=== PATIENT | female | born 1955 | race Caucasian/White ===

== ENCOUNTER 2021-07-19 14:18 | Emergency (ER) | payer OTHER, SELFPAY ==
[2021-07-19] VITALS (7 sets, daily range): BP systolic 175–218; BP diastolic 84–106; PULSE 63–80; RESP 16–18; TEMP 36.6–36.8; O2SAT 96–99; BMI 32.8
[2021-07-19 14:57] LABS: Apearance,Urine Clear (Clear); Color,Urine Yellow (Yellow); PH,Urine 6.5 (5.0-8.5); Protein,Urine Negative (Negative)
[2021-07-19 14:58] LABS: Bilirubin,Urine Negative (Negative); Blood, Urine Negative (Negative); Glucose,Urine (UA) Negative (Negative); Ketones,Urine Negative (Negative); UTC Leukocyte Esterase,Urine Trace (Negative); UTC Nitrate,Urine Negative (Negative); Urobilinogen,Urine 0.2 EU/dl (0.2)
--- NOTE | 2021-07-19 15:32 | HMH.EDUTC ---
[facility] [place] Clinical Impression: Uncontrolled hypertension, Shakiness Disposition: Home, Self-Care Condition on Discharge: Good Instructions: DI for High Blood Pressure Additional Instructions: Take your dose of lisinopril 20 mg tonight. You may begin taking lisinopril 40 mg call in 1 dose tomorrow. You may stop taking the antibiotic. Call your primary care doctor tomorrow for follow-up. Return to the emergency department if symptoms worsen. Referrals: Provider,Referral, [Primary Care Provider] - Medical Decision Making - Jose Juan Inquiry Pt receiving controlled substance: No Jose Juan was queried for this patient: No Vital Signs: 07/19/21 14:34 07/19/21 14:52 07/19/21 16:46 Temperature 98.2 F Temperature Source Oral Pulse Rate 80 Pulse Rate [Right Radial] 63 63 Respiratory Rate 18 16 16 Blood Pressure 206/84 H Blood Pressure [Right Arm] 190/100 H 190/100 H Blood Pressure Mean [Right Arm] 130 130 Blood Pressure Source Automatic Cuff Blood Pressure Source [Right Arm] Automatic Cuff Automatic Cuff Blood Pressure Position Sitting Blood Pressure Position [Right Arm] Sitting Sitting 02 Sat by Pulse Oximetry 99 99 98 Oxygen Delivery Method Room Air Room Air Room Air 07/19/21 17:00 07/19/21 17:23 07/19/21 17:30 Temperature 98.2 F Temperature Source Oral Pulse Rate 69 75 66 Pulse Rate [Right Radial] 64 Respiratory Rate 18 Blood Pressure 213/106 H 218/104 H 192/99 H Blood Pressure [Right Arm] 206/105 H Blood Pressure Mean [Right Arm] 138 Blood Pressure Source Blood Pressure Source [Right Arm] Automatic Cuff Blood Pressure Position Blood Pressure Position [Right Arm] Sitting 02 Sat by Pulse Oximetry 98 98 96 Oxygen Delivery Method Room Air 07/19/21 20:15 07/19/21 20:16 Temperature 97.9 F Temperature Source Oral Pulse Rate 76 Pulse Rate [Right Radial] Respiratory Rate 18 Blood Pressure 175/94 H Blood Pressure [Right Arm] Blood Pressure Mean [Right Arm] Blood Pressure Source Automatic Cuff Blood Pressure Source [Right Arm] Blood Pressure Position Sitting Blood Pressure Position [Right Arm] 02 Sat by Pulse Oximetry Oxygen Delivery Method Room Air Room Air - Lab Data Lab Results 07/19/21 14:50: Urine Color Yellow, Urine Appearance Clear, Urine pH 6.5, Ur Specific [place] 1.010, Urine Protein Negative, Urine Glucose (UA) Negative, Urine Ketones Negative, Urine Blood Negative, Urine Nitrate Negative, Urine Bilirubin Negative, Urine Urobilinogen 0.2, Ur Leukocyte Esterase Trace 07/19/21 16:03: WBC 12.4 H, RBC 4.83, Hgb 14.0, Hct 44.2, MCV 91.6, MCH 28.9, MCHC 31.6 L, RDW 14.0, Plt Count 459 H, MPV 8.3, Neut % (Auto) 71.4, Lymph % (Auto) 22.5, Jack % (Auto) 4.1, Eos % (Auto) 1.2, Baso % (Auto) 0.8, Neut # (Auto) 8.9 H, Lymph # (Auto) 2.8, Jack # (Auto) 0.5, Eos # (Auto) 0.1, Baso # (Auto) 0.1 07/19/21 16:03: Sodium 132 L, Potassium 3.7, Chloride 101, Carbon Dioxide 30, Anion Gap 4.7 L, BUN 10, Creatinine 0.70, Estimated Creat Clear 81, Estimated GFR 85, Est GFR ( Amer) 102, Glucose 93, Calcium 8.6, Total Bilirubin 0.6, AST 44 H, ALT 40, Alkaline Phosphatase 98, Troponin I < 0.01, Total Protein 7.9, Albumin 4.6, Globulin 3.3 H, Albumin/Globulin Ratio 1.4 Result diagrams: 07/19/21 16:03 07/19/21 16:03 Orders (Tests/Meds): ED MEDICATIONS Generic Name Dose Route Start Last Admin Trade Name Freq PRN Reason Stop Dose Admin Sodium Chloride 10 ml 07/19/21 16:05 Sodium Chloride 0.9% 10ml Flush Syringe IV 08/18/21 16:04 NEEDED PRN Maintain IV Site Discontinued Medications Generic Name Dose Route Start Last Admin Trade Name Freq PRN Reason Stop Dose Admin Hydralazine HCl 5 mg 07/19/21 17:31 07/19/21 17:52 Hydralazine 20mg/Ml Vial IV 07/19/21 17:32 5 mg ONCE ONE Administration Hydralazine HCl 5 mg 07/19/21 18:51 07/19/21 18:53 Hydralazine 20mg/Ml Vial IV 07/19/21 18:52 5 mg ONCE
--- NOTE | 2021-07-19 15:55 | PC.NURSE ---
Called report to [facility] in ER. Advised no bed available at this time.
--- NOTE | 2021-07-19 16:03 | PC.NURSE ---
Advised pt she would be transferring over to the ED for further evaul but there were no beds available at this time. Pt agreeable with plan. ER workup started in [facility]. IV started, and orders entered.
--- NOTE | 2021-07-19 16:05 | CT_ITS ---
PROCEDURE INFORMATION: Exam: CT Head Without Contrast Exam date and time: 07/19/2021 4:05 PM Age: 65 years old Clinical indication: Dizziness; Additional info: Hypertension; Feels funny TECHNIQUE: Imaging protocol: Computed tomography of the head without contrast. Radiation optimization: All CT scans at this facility use at least one of these dose optimization techniques: automated exposure control; mA and/or kV adjustment per patient size (includes targeted exams where dose is matched to clinical indication); or iterative reconstruction. COMPARISON: No relevant prior studies available. FINDINGS: Brain: Normal. No hemorrhage. Unremarkable white matter. No mass effect. Cerebral ventricles: No ventriculomegaly. Paranasal sinuses: Visualized sinuses are unremarkable. No fluid levels. Mastoid air cells: Visualized mastoid air cells are well aerated. Bones/joints: Unremarkable. No acute fracture. Soft tissues: Unremarkable. IMPRESSION: No acute intracranial abnormality.
[2021-07-19 16:19] LABS: Chloride 101 mmol/L (98-107); Potassium 3.7 mmoL/L (3.5-5.1); Sodium 132 mmol/L (136-145)
[2021-07-19 16:22] LABS: Alanine Aminotransferase 40 U/L (12-78); Albumin Level 4.6 g/dl (3.5-5.0); Albumin/Globulin Ratio 1.4 (1.1-1.8); Alkaline Phosphatase 98 U/L (38-126); Anion Gap 4.7 mEq/L (5-15); Aspartate Amino Transferase 44 U/L (14-36); Bilirubin,Total 0.6 mg/dl (0.2-1.3); Blood Urea Nitrogen 10 mg/dl (7-17); Carbon Dioxide 30 mmol/L (22.0-30.0); Creatinine Clearance Estimated 81 mL/min (50-200); Estimated Glomerular Filt Rate 85 ml/min (>60); GFR (African American) 102 ML/MIN (>60); Globulin 3.3 g/dL (1.3-3.2); Total Protein,Serum 7.9 g/dl (6.3-8.2)
[2021-07-19 16:23] LABS: Calcium 8.6 mg/dl (8.4-10.2); Glucose 93 mg/dl (74-100)
--- NOTE | 2021-07-19 16:30 | ECG_ITS ---
APPROVED REPORT Exam: Resting ECG HR:68 bpm ECG Measurements Heart Rate 68 AXES SD 196 P 44 QRSd 102 QRS -29 QT 386 T 12 QTc 403 Conclusion SINUS RHYTHM BORDERLINE LEFT AXIS DEVIATION [QRS AXIS < -20] MINIMAL VOLTAGE CRITERIA FOR LVH, CONSIDER NORMAL VARIANT [MEETS CRITERIA IN ONE OF: R(aVL), S(V1), R(V5), R(V5/V6)+S(V1)] BORDERLINE ECG UNCONFIRMED REPORT Electronically signed by : Alejandro Whittington MD 07/22/2021 16:08:47
--- NOTE | 2021-07-19 16:33 | PC.NURSE ---
Pt returned from CT
[2021-07-19 16:35] LABS: Basophils # 0.1 K/mm3 (0-0.2); Basophils % 0.8 % (0.1-2.0); Eosinophils # 0.1 K/mm3 (0.0-0.4); Eosinophils % 1.2 % (0.1-12.0); Hematocrit 44.2 % (37.0-47.0); Lymphocytes # 2.8 K/mm3 (0.7-4.5); Lymphocytes % 22.5 % (10-50); Mean Corpuscular HGB Conc 31.6 g/dL (31.8-35.4); Mean Corpuscular Hemoglobin 28.9 pg (27.0-31.2); Mean Corpuscular Volume 91.6 fl (81-99); Mean Platelet Volume 8.3 fl (7.4-10.4); Monocytes # 0.5 K/mm3 (0.1-1.0); Monocytes % 4.1 % (1.7-9.3); Neutrophils # 8.9 K/mm3 (1.8-7.8); Neutrophils % 71.4 % (37.0-80.0); Platelet Count 459 K/mm3 (142-424); Red Blood Count 4.83 M/mm3 (4.20-5.40); White Blood Count 12.4 K/mm3 (4.8-10.8)
[2021-07-19 16:37] LABS: Troponin I < 0.01 ng/ml (0.00-0.034)
--- NOTE | 2021-07-19 16:52 | PC.NURSE ---
PT to ED to room 4
--- NOTE | 2021-07-19 17:06 | HMH.EDGENADL ---
ED Disposition Clinical Impression: Uncontrolled hypertension, Shakiness Disposition: Home, Self-Care Condition on Discharge: Fair Instructions: DI for High Blood Pressure Additional Instructions: Take your dose of lisinopril 20 mg tonight. You may begin taking lisinopril 40 mg call in 1 dose tomorrow. You may stop taking the antibiotic. Call your primary care doctor tomorrow for follow-up. Return to the emergency department if symptoms worsen. Referrals: Provider,Referral, [Primary Care Provider] - - Critical Care Critical Care Time: No Attestation: On 07/19/21, the high probability of a clinically significant, sudden or life threatening deterioration of the following system(s) required my full and direct attention, intervention and personal management. The time I documented below is in addition to time spent performing reported procedures but includes the following listed in this critical care notation. Medical Decision Making - Jose Juan Inquiry Pt receiving controlled substance: No Vital Signs: 07/19/21 14:34 07/19/21 14:52 07/19/21 16:46 Temperature 98.2 F Temperature Source Oral Pulse Rate 80 Pulse Rate [Right Radial] 63 63 Respiratory Rate 18 16 16 Blood Pressure 206/84 H Blood Pressure [Right Arm] 190/100 H 190/100 H Blood Pressure Mean [Right Arm] 130 130 Blood Pressure Source Automatic Cuff Blood Pressure Source [Right Arm] Automatic Cuff Automatic Cuff Blood Pressure Position Sitting Blood Pressure Position [Right Arm] Sitting Sitting 02 Sat by Pulse Oximetry 99 99 98 Oxygen Delivery Method Room Air Room Air Room Air 07/19/21 17:00 07/19/21 17:23 07/19/21 17:30 Temperature 98.2 F Temperature Source Oral Pulse Rate 69 75 66 Pulse Rate [Right Radial] 64 Respiratory Rate 18 Blood Pressure 213/106 H 218/104 H 192/99 H Blood Pressure [Right Arm] 206/105 H Blood Pressure Mean [Right Arm] 138 Blood Pressure Source Blood Pressure Source [Right Arm] Automatic Cuff Blood Pressure Position Blood Pressure Position [Right Arm] Sitting 02 Sat by Pulse Oximetry 98 98 96 Oxygen Delivery Method Room Air - Lab Data Lab Results 07/19/21 14:50: Urine Color Yellow, Urine Appearance Clear, Urine pH 6.5, Ur Specific [place] 1.010, Urine Protein Negative, Urine Glucose (UA) Negative, Urine Ketones Negative, Urine Blood Negative, Urine Nitrate Negative, Urine Bilirubin Negative, Urine Urobilinogen 0.2, Ur Leukocyte Esterase Trace 07/19/21 16:03: WBC 12.4 H, RBC 4.83, Hgb 14.0, Hct 44.2, MCV 91.6, MCH 28.9, MCHC 31.6 L, RDW 14.0, Plt Count 459 H, MPV 8.3, Neut % (Auto) 71.4, Lymph % (Auto) 22.5, [place] % (Auto) 4.1, Eos % (Auto) 1.2, Baso % (Auto) 0.8, Neut # (Auto) 8.9 H, Lymph # (Auto) 2.8, [place] # (Auto) 0.5, Eos # (Auto) 0.1, Baso # (Auto) 0.1 07/19/21 16:03: Sodium 132 L, Potassium 3.7, Chloride 101, Carbon Dioxide 30, Anion Gap 4.7 L, BUN 10, Creatinine 0.70, Estimated Creat Clear 81, Estimated GFR 85, Est GFR ( Amer) 102, Glucose 93, Calcium 8.6, Total Bilirubin 0.6, AST 44 H, ALT 40, Alkaline Phosphatase 98, Troponin I < 0.01, Total Protein 7.9, Albumin 4.6, Globulin 3.3 H, Albumin/Globulin Ratio 1.4 Result diagrams: 07/19/21 16:03 07/19/21 16:03 Orders (Tests/Meds): ED MEDICATIONS Generic Name Dose Route Start Last Admin Trade Name Freq PRN Reason Stop Dose Admin Sodium Chloride 10 ml 07/19/21 16:05 Sodium Chloride 0.9% 10ml Flush Syringe IV 08/18/21 16:04 NEEDED PRN Maintain IV Site Discontinued Medications Generic Name Dose Route Start Last Admin Trade Name Freq PRN Reason Stop Dose Admin Hydralazine HCl 5 mg 07/19/21 17:31 07/19/21 17:52 Hydralazine 20mg/Ml Vial IV 07/19/21 17:32 5 mg ONCE ONE Administration Hydralazine HCl 5 mg 07/19/21 18:51 07/19/21 18:53 Hydralazine 20mg/Ml Vial IV 07/19/21 18:52 5 mg ONCE ONE Administration ORDERS Category Date Time Status Urine Culture
== END 2021-07-19 20:30 | disposition home or self-care (01) ==
LOC: ER 14:40 → UTC 14:45 → ER 16:53
PROVIDERS: Nurse Practitioner; Emergency Provider Emergency Medicine
DX: N39.0 Urinary tract infection, site not specified (principal); I10 Essential (primary) hypertension; R42 Dizziness and giddiness
CPT/HCPCS: 70450; 80053; 81003; 84484; 85025; 87086; 93005; 96374; 96376; 99284